=== PATIENT | male | born 1975 | race Caucasian/White ===

== ENCOUNTER 2025-03-31 13:40 | Outpatient (CLI) | payer BC, SELFPAY ==
--- NOTE | 2025-03-31 14:00 | CRLHL7_ITS ---
For Patients: As a result of the Century Cures Act, medical imaging exams and procedure reports are released immediately into your electronic medical record. You may view this report before your referring provider. If you have questions, please contact your health care provider. Indication: Patient has had pressure and a sensation of a golf ball in the lower right abdomen/groin area x 2 months, evaluate for hernia Technique: Grayscale and color Doppler ultrasound of the right inguinal soft tissues performed. Comparison: None Findings: Normal right inguinal lymph nodes are present with normal central fatty liban and internal vascularity without cortical thickening. No fluid collection or mass. No hernia. Impression: No suspicious findings are present. Dictated by Raulito Marion MD @ 03/31/2025 3:19:34 PM (Electronically Signed)
== END 2025-03-31 13:41 | disposition home or self-care (01) ==
LOC: US 13:41
PROVIDERS: Visit Provider Physician Assistant Medical
DX: R10.31 Right lower quadrant pain (principal)
CPT/HCPCS: 76882